=== PATIENT | male | born 1985 | race Caucasian/White ===

== ENCOUNTER 2016-07-16 21:29 | Emergency (ER) | payer MEDICAID, OTHER ==
[~2016-07-16] VITALS: Ht 172.7 cm; Wt 100.0 kg
[~2016-07-16 21:29] MED LIST: NOCURR
[2016-07-16 22:58] VITALS: BP 146/85
== END 2016-07-16 23:01 | disposition home or self-care (01) ==
LOC: EMS 21:31
DX: J06.9 Acute upper respiratory infection, unspecified (principal)
CPT/HCPCS: 99281

== ENCOUNTER 2022-10-06 19:31 | Emergency (ER) | payer OTHER ==
[~2022-10-06] VITALS: Ht 170.2 cm; Wt 104.5 kg
[2022-10-06 19:33] VITALS: BP 136/64
[2022-10-06] MEDS ORDERED: CLIN-142 PO (20:12)
[2022-10-06] MEDS ORDERED: MUPI1OIN5 TP (20:13)
[2022-10-06] MEDS ORDERED: CLINDAMYCIN HCL 150 MG CAPSULE PO ONE (20:15)
[2022-10-06] MEDS ORDERED: TraMADol HCL 50 MG TABLET PO ONE (20:15)
== END 2022-10-06 20:40 | disposition home or self-care (01) ==
LOC: EMS 19:31
DX: L01.00 Impetigo, unspecified (principal)
CPT/HCPCS: 99283